=== PATIENT | female | born 1990 | race African-American/Black ===

== ENCOUNTER 2024-02-23 21:40 | Emergency (ER) | payer MEDICAID, OTHER ==
[~2024-02-23] VITALS: Ht 180.3 cm; Wt 109.0 kg
[2024-02-23 22:09] VITALS: BP 118/72; PULSE 85; RESP 20; O2SAT 97
[2024-02-23] MEDS ORDERED: IPRATROPIUM BROM 0.5 MG/2.5ML INH SOL NEB ONE (22:15)
[2024-02-23] MEDS ORDERED: ALBUTEROL SULF 2.5 MG/0.5ML(0.5%) NEB SOLN NEB ONE (22:15)
== END 2024-02-24 00:26 | disposition left against medical advice (07) ==
LOC: ER 21:40
DX: J45.901 Unspecified asthma with (acute) exacerbation (principal); Z53.21 Procedure and treatment not carried out due to patient leaving prior to being seen by health care provider

== ENCOUNTER 2024-02-26 10:08 | Inpatient (IN) | payer MEDICAID ==
[~2024-02-26] VITALS: Ht 180.3 cm; Wt 104.8 kg
[2024-02-26 10:40] LABS: Chloride 114 mmol/L (98-107); Potassium 3.6 mmol/L (3.5-5.1); Sodium 140 mmol/L (136-145)
[2024-02-26 10:41] LABS: Anion Gap 10 (5-15); Carbon Dioxide 16 mmol/L (20-30)
[2024-02-26 10:42] LABS: Calcium 9.3 mg/dL (8.5-10.1)
[2024-02-26 10:43] LABS: Basophils # (auto) 0.1 10 ^3/uL (0-0.2); Basophils % (auto) 0.8 % (0.0-2.0); Eosinophils # (auto) 0.9 10 ^3/uL (0-0.8); Eosinophils % (auto) 9.1 % (0.0-7.0); Hematocrit 35.6 % (36.0-46.0); Hemoglobin 11.4 g/dL (12.2-16.2); Lymphocytes # (auto) 2.8 10 ^3/uL (0.4-5.4); Lymphocytes % (auto) 29.6 % (10.0-50.0); Mean Corpuscular Hemoglobin 29.4 pg (28.0-32.0); Mean Corpuscular Hgb Conc. 32.2 g/dL (32.0-36.0); Mean Corpuscular Volume 91.3 fL (80.0-100.0); Monocytes # (auto) 0.7 10 ^3/uL (0-1.3); Monocytes % (auto) 6.8 % (0.0-12.0); Neutrophils # (auto) 5.2 10 ^3/uL (1.6-8.6); Neutrophils % (auto) 53.7 % (37.0-80.0); White Blood Cell 9.6 10^3/uL (4.4-10.8)
[2024-02-26 10:46] LABS: Glucose 92 mg/dL (74-106)
[2024-02-26 10:47] LABS: BUN/Creatinine Ratio 11.3 (10.0-20.0); Blood Urea Nitrogen 6 mg/dL (9-23)
[2024-02-26] MEDS: ALBUTEROL SULF 2.5 MG/0.5ML(0.5%) NEB SOLN ONE ×3 (11:14→14:32)
[2024-02-26] MEDS: IPRATROPIUM BROM 0.5 MG/2.5ML INH SOL ONE ×2 (11:15→14:32)
[2024-02-26] MEDS: ALBUTEROL SULF 2.5 MG/0.5ML(0.5%) NEB SOLN NEB ONE (11:17)
[2024-02-26] MEDS: IPRATROPIUM BROM 0.5 MG/2.5ML INH SOL NEB ONE (11:17)
[2024-02-26] MEDS: methylPREDNISolone SOD SUCC 125 MG/2 ML VL ONE (11:41)
[2024-02-26] MEDS: methylPREDNISolone SOD SUCC 125 MG/2 ML VL IV ONE (11:43)
[2024-02-26] MEDS: SODIUM CHLORIDE 0.9% 1,000 ML IV SCH (12:15)
[2024-02-26] MEDS ORDERED: ONDANSETRON HCL 4 MG/2 ML VIAL IV PRN (12:15)
[2024-02-26] MEDS ORDERED: DOCUSATE SOD 100 MG CAP PO PRN (12:15)
[2024-02-26] MEDS ORDERED: MORPHINE SULFATE INJ 2 MG/ml SYRG IV PRN (12:15)
[2024-02-26] MEDS: AZITHROMYCIN 500MG/ 250ML 250 ML IV ONE (12:45)
[2024-02-26 12:55] LABS: INR 0.98 (0.9-1.15); Prothrombin Time 10.3 sec (9.3-11.8)
[2024-02-26 13:23] VITALS: BP 133/87; PULSE 74; RESP 16; TEMP 98.4; O2SAT 95
[2024-02-26] MEDS: methylPREDNISolone SOD SUCC 125 MG/2 ML VL IV SCH (14:00)
[2024-02-26 15:59] LABS: Urine Bacteria FEW /hpf (None Seen); Urine Blood 1+ /uL (Negative); Urine Clarity Turbid (Clear); Urine Color Light-Yellow (Yellow); Urine Mucus FEW (None Seen); Urine Protein, UAD Negative (Negative); Urine Specific Gravity 1.018 (1.001-1.035); Urine Urobilinogen Normal (Negative); Urine WBC 2 /hpf (0 - 5); Urine pH 5.5 (5.0-9.0)
[2024-02-26 17:50] VITALS: PULSE 83; RESP 18; O2SAT 97
[2024-02-26] MEDS: ALBUTEROL SULF 2.5 MG/0.5ML(0.5%) NEB SOLN NEB SCH (17:51)
[2024-02-26] MEDS: IPRATROPIUM BROM 0.5 MG/2.5ML INH SOL NEB SCH (17:52)
[2024-02-26 17:59] VITALS: PULSE 87; RESP 18; O2SAT 97; O2SAT 99
[2024-02-26 18:00] VITALS: O2SAT 97
[2024-02-26] MEDS ORDERED: ENOXAPARIN SOD 100 MG/1 ML SYRINGE SC SCH (22:00)
[2024-02-27] MEDS ORDERED: AZITHROMYCIN 500MG/ 250ML 250 ML IV SCH (10:00)
== END 2024-02-26 20:18 | disposition left against medical advice (07) | DRG 144 ==
LOC: ER 10:08 → OVERFLOW 12:36
PROVIDERS: ADMIT Nurse Practitioner Family; ATTEND Nurse Practitioner Family
DX: J98.4 Other disorders of lung (principal); J96.20 Acute and chronic respiratory failure, unspecified whether with hypoxia or hypercapnia; F17.200 Nicotine dependence, unspecified, uncomplicated; G89.29 Other chronic pain; Z98.891 History of uterine scar from previous surgery; Z53.29 Procedure and treatment not carried out because of patient's decision for other reasons; Z79.899 Other long term (current) drug therapy
CPT/HCPCS: 36415; 71045; 80048; 81001; 85025; 85379; 85610; 93005; 94640; 96361; 96374; G0378